=== PATIENT | female | born 1950 | race African-American/Black ===

== ENCOUNTER 2022-04-10 08:55 | Inpatient (IN) ==
[2022-04-10] MEDS ORDERED: SODIUM CHLORIDE 0.9% 500 ML IV STA (11:13)
[2022-04-10 11:31] LABS: Basophils # 0.1 10*3/uL (0.0-0.2); Basophils % 0.5 % (0.0-0.8); Eosinophils % 0.3 % (0.00-10.9); Hemoglobin 12.2 GM/DL (12.0-16.0); Immature Granulocytes % 0.5 %; Immature Granulocytes Absolute 0.05 #; Lymphocytes # 1.2 10*3/uL (1.4-4.0); Lymphocytes % 12.9 % (21.3-54.2); Mean Corpuscular HGB Conc 32.1 GM/DL (32-36); Mean Platelet Volume 10.9 FL (9.6-12.0); Monocytes # 0.9 10*3/uL (0.11-0.8); Monocytes % 9.7 % (1.7-12.7); Neutrophils % 76.1 % (38.7-73.9); Platelet Count 281 T/CUMM (130-400); Red Cell Distribution Width 13.7 % (9.3-17.3); White Blood Count 9.5 T/CUMM (4-12)
[2022-04-10 11:33] LABS: Arterial Base Excess iSTAT 8 MMOL/L (-2.5-2.5); Arterial Bicarbonate iSTAT 31.9 MMOL/L (20-26); Arterial O2 Saturation iSTAT 98 % (95-100); Arterial PCO2 iSTAT 43 MM HG (35-48); Arterial PO2 iSTAT 95 MM HG (80-95); Arterial Total CO2 iSTAT 33 MMO/L (23-27); Arterial pH iSTAT 7.484 (7.35-7.45)
[2022-04-10 11:39] LABS: INR 1.2; PT Patient Result 13.4 SECS (10.1-12.1); Partial Thromboplastin Time 29.5 SECS (23.7-32.9)
[2022-04-10 11:46] LABS: Albumin 2.8 G/DL (3.4-5.0); Bilirubin,Total 0.6 MG/DL (0.20-1.00); Calcium 9.6 MG/DL (8.5-10.1); Osmolality,Calculated 301.8 MOS/KG (273-304); Potassium 3.4 MMOL/L (3.5-5.1); Total Protein 7.2 G/DL (6.4-8.2)
[2022-04-10] MEDS ORDERED: INSULIN LISPRO 100 UNIT/ML SUBCUT STA (12:37)
[2022-04-10] MEDS ORDERED: DEXTROSE 10% 250 ML BAG IV PRN (13:31)
[2022-04-10] MEDS ORDERED: GLUCAGON 1 MG VIAL IM PRN (13:31)
[2022-04-10] MEDS ORDERED: DEXTROSE 50% 25 GM/50 ML VIAL IV PRN (13:31)
[2022-04-10] MEDS ORDERED: ONDANSETRON 4 MG/2 ML VIAL IV PRN (13:31)
[2022-04-10] MEDS ORDERED: hydrALAZINE 20 MG/1 ML VIAL IV PRN (13:36)
[2022-04-10] MEDS ORDERED: hydrALAZINE 20 MG/1 ML VIAL IV STA (13:52)
[2022-04-10 13:55] LABS: Protein,Urine >=300 mg/dL (Negative); Urine Appearance Cloudy (Clear); Urine Color Yellow (Yellow); Urine pH 6.5 (4.5-8.0)
[2022-04-10 13:56] LABS: Bilirubin,Urine Negative (Negative); Blood, Urine Small mg/dL (Negative); Glucose,Urine (UA) >=1000 mg/dL (Negative); Ketones,Urine Negative (Negative); Nitrite,Urine Negative (Negative); Urine Urobilinogen 0.2 eU/dL (<2.0)
[2022-04-10 13:58] LABS: Bacteria,Urine Occasional /HPF (Few); RBC,Urine 6 /HPF (0-4); Squamous Epithelial Cell,Urine Occasional /HPF (0-10)
[2022-04-10] MEDS: cefTRIAXone 1,000 MG in SODIUM CHLORIDE 0.9% 100 ML IV SCH (14:25)
[2022-04-10 14:27] LABS: Barbiturates Screen,Urine Negative (Negative); Benzodiazepines Screen,Urine Negative (Negative); Cannabinoid Screen,Urine Negative (Negative); Opiate Screen,Urine Negative (Negative); Phencyclidine Screen,Urine Negative (Negative)
[2022-04-10] MEDS: INSULIN LISPRO 100 UNIT/ML SUBCUT SCH ×2 (16:37→20:20)
[2022-04-10] MEDS: SEVELAMER CARBONATE 800 MG TABLET PO SCH (18:05)
[2022-04-10] MEDS: INSULIN NPH/REG 70/30 100 UNIT/ML SUBCUT SCH (20:20)
[2022-04-10] MEDS: NEBIVOLOL 10 MG TABLET PO SCH (20:28)
[2022-04-10] MEDS: HEPARIN 5,000 UNIT/1 ML VIAL SUBCUT SCH (20:29)
[2022-04-10] MEDS: MAGNESIUM OXIDE 400 MG TABLET PO SCH (20:29)
[2022-04-10] MEDS: BRIMONIDINE/TIMOLOL OPH SOLN 5 ML BOTTLE BOTH EYES SCH (20:37)
[2022-04-10] MEDS: cycloSPORINE OPH EMUL 1 VIAL BOTH EYES SCH (20:37)
[2022-04-10] MEDS: TRAVOPROST 0.004% OPH SOLN 2.5 ML BOTTLE BOTH EYES SCH (20:37)
[2022-04-11 04:51] LABS: Basophils % 0.4 % (0.0-0.8); Eosinophils # 0.1 10*3/uL (0.0-0.87); Eosinophils % 0.8 % (0.00-10.9); Hematocrit 37.3 VOL% (35.7-47.0); Hemoglobin 11.8 GM/DL (12.0-16.0); Immature Granulocytes % 0.2 %; Immature Granulocytes Absolute 0.02 #; Lymphocytes # 2.4 10*3/uL (1.4-4.0); Lymphocytes % 28.7 % (21.3-54.2); Mean Corpuscular HGB Conc 31.6 GM/DL (32-36); Mean Corpuscular Volume 95.4 FL (87-102); Mean Platelet Volume 10.1 FL (9.6-12.0); Monocytes # 0.9 10*3/uL (0.11-0.8); Monocytes % 10.6 % (1.7-12.7); Neutrophils % 59.3 % (38.7-73.9); Platelet Count 279 T/CUMM (130-400); Red Blood Count 3.91 MC/CUMM (3.8-5.5); Red Cell Distribution Width 13.9 % (9.3-17.3); White Blood Count 8.4 T/CUMM (4-12)
[2022-04-11 05:34] LABS: Calcium 9.4 MG/DL (8.5-10.1); Osmolality,Calculated 290.4 MOS/KG (273-304); Potassium 3.3 MMOL/L (3.5-5.1); Risk Ratio 2.65; Thyroid Stimulating Hormone 0.647 uIU/ml (0.358-3.74); VLDL Cholesterol 13.4 MG/DL
[2022-04-11] MEDS: HEPARIN 5,000 UNIT/1 ML VIAL SUBCUT SCH ×3 (05:53→20:48)
[2022-04-11] MEDS: INSULIN LISPRO 100 UNIT/ML SUBCUT SCH ×5 (08:29→20:50)
[2022-04-11] MEDS: PANTOPRAZOLE 40 MG TABLET PO SCH (08:30)
[2022-04-11] MEDS: FERROUS SULFATE 325 MG TABLET PO SCH (08:31)
[2022-04-11] MEDS: ASPIRIN CHEW 81 MG TABLET PO SCH (08:31)
[2022-04-11] MEDS: MAGNESIUM OXIDE 400 MG TABLET PO SCH ×2 (08:32→20:48)
[2022-04-11] MEDS ORDERED: LACTULOSE 20 GM/30 ML UDCUP PO PRN (08:33)
[2022-04-11] MEDS: NEBIVOLOL 10 MG TABLET PO SCH ×2 (08:33→20:47)
[2022-04-11] MEDS: SEVELAMER CARBONATE 800 MG TABLET PO SCH ×3 (08:34→17:31)
[2022-04-11] MEDS: BRIMONIDINE/TIMOLOL OPH SOLN 5 ML BOTTLE BOTH EYES SCH ×2 (08:35→20:49)
[2022-04-11] MEDS: cycloSPORINE OPH EMUL 1 VIAL BOTH EYES SCH ×2 (08:36→20:49)
[2022-04-11] MEDS: POLYETHYLENE GLYCOL POWDER 17 GM PACK PO SCH (08:48)
[2022-04-11] MEDS: DOCUSATE SODIUM 100 MG CAPSULE PO SCH ×2 (08:49→20:47)
[2022-04-11] MEDS: INSULIN NPH/REG 70/30 100 UNIT/ML SUBCUT SCH ×2 (08:58→20:48)
[2022-04-11] MEDS ORDERED: hydrALAZINE 20 MG/1 ML VIAL IV ONE (14:04)
[2022-04-11] MEDS: cefTRIAXone 1,000 MG in SODIUM CHLORIDE 0.9% 100 ML IV SCH (14:33)
[2022-04-11] MEDS ORDERED: cloNIDine 0.3 MG/24 HR PATCH TRANSDERM SCH (15:00)
[2022-04-11] MEDS: minoxidiL 2.5 MG TABLET PO SCH (20:47)
[2022-04-11] MEDS: TRAVOPROST 0.004% OPH SOLN 2.5 ML BOTTLE BOTH EYES SCH (20:49)
[2022-04-12] MEDS: HEPARIN 5,000 UNIT/1 ML VIAL SUBCUT SCH (05:44)
[2022-04-12] MEDS: INSULIN LISPRO 100 UNIT/ML SUBCUT SCH (07:50)
[2022-04-12] MEDS: POLYETHYLENE GLYCOL POWDER 17 GM PACK PO SCH (09:24)
[2022-04-12] MEDS: minoxidiL 2.5 MG TABLET PO SCH (09:25)
[2022-04-12] MEDS: MAGNESIUM OXIDE 400 MG TABLET PO SCH (09:25)
[2022-04-12] MEDS: DOCUSATE SODIUM 100 MG CAPSULE PO SCH (09:25)
[2022-04-12] MEDS: PANTOPRAZOLE 40 MG TABLET PO SCH (09:25)
[2022-04-12] MEDS: NEBIVOLOL 10 MG TABLET PO SCH (09:25)
[2022-04-12] MEDS: SEVELAMER CARBONATE 800 MG TABLET PO SCH (09:25)
[2022-04-12] MEDS: ASPIRIN CHEW 81 MG TABLET PO SCH (09:25)
[2022-04-12] MEDS: FERROUS SULFATE 325 MG TABLET PO SCH (09:26)
[2022-04-12] MEDS: cycloSPORINE OPH EMUL 1 VIAL BOTH EYES SCH (09:26)
[2022-04-12] MEDS: INSULIN NPH/REG 70/30 100 UNIT/ML SUBCUT SCH (09:27)
[2022-04-12] MEDS: BRIMONIDINE/TIMOLOL OPH SOLN 5 ML BOTTLE BOTH EYES SCH (09:28)
[2022-04-12 12:03] VITALS: BP 136/52
== END 2022-04-12 13:00 | disposition home or self-care (01) | DRG 304 ==
LOC: N.ED 08:55 → N.EDINP 13:31 → N.TELEN 15:43
PROVIDERS: ADMIT Internal Medicine; ATTEND Internal Medicine